=== PATIENT | female | born 1955 | race Two or more races ===

== ENCOUNTER 2017-07-23 14:15 | Emergency (ER) | payer OTHER ==
[~2017-07-23] VITALS: Ht 154.9 cm; Wt 57.2 kg
[2017-07-23 14:24] VITALS: BP 151/90
== END 2017-07-23 14:47 | disposition home or self-care (01) ==
LOC: ER 14:23
DX: J01.90 Acute sinusitis, unspecified (principal); J45.909 Unspecified asthma, uncomplicated; E11.9 Type 2 diabetes mellitus without complications; Z88.5 Allergy status to narcotic agent; Z88.6 Allergy status to analgesic agent
CPT/HCPCS: 99283; A4606; Z7610

== ENCOUNTER 2018-05-17 11:28 | Emergency (ER) | payer OTHER ==
[~2018-05-17] VITALS: Ht 154.9 cm; Wt 59.9 kg
[2018-05-17 11:55] VITALS: BP 159/69
--- NOTE | 2018-05-17 12:56 | NUR ---
CALLED [facility] [phone] SPOKE WITH YANCI TO PAGE
== END 2018-05-17 14:06 | disposition home or self-care (01) ==
LOC: ER 11:29
DX: M65.331 Trigger finger, right middle finger (principal); M79.89 Other specified soft tissue disorders; J45.909 Unspecified asthma, uncomplicated; E11.9 Type 2 diabetes mellitus without complications; Z98.49 Cataract extraction status, unspecified eye; Z88.6 Allergy status to analgesic agent; Z88.5 Allergy status to narcotic agent; Z60.2 Problems related to living alone
CPT/HCPCS: 99283; A4606; Z7610

== ENCOUNTER 2022-11-17 15:50 | Emergency (ER) | payer OTHER ==
[~2022-11-17] VITALS: Ht 154.9 cm; Wt 54.4 kg
--- NOTE | 2022-11-17 16:30 | NUR ---
BIBS C/O COUGH X 3 WEEKS. AMBULATORY, PLACED IN BED, AAOX4, BREATHING UNLABORED SATURATING AT 95%RA, COUGHING NOTED.
[2022-11-17] MEDS ORDERED: ALBUTEROL FS 2.5 MG/3 ML VIAL.NEB NEB ONE (17:00)
[2022-11-17] MEDS ORDERED: methylPREDNISolone SOD SUCC 125 MG/2ML VIAL IV ONE (17:00)
[2022-11-17] MEDS ORDERED: methylPREDNISolone SOD SUCC 125 MG/2ML VIAL ONE (17:00)
[2022-11-17] MEDS ORDERED: IPRATROPIUM NEB FS 0.5 MG/2.5 ML AMPUL.NEB NEB ONE (17:00)
--- NOTE | 2022-11-17 17:00 | NUR ---
RESP. TECH. AT BEDSIDE FOR BREATHING TREATMENT
[2022-11-17] MEDS ORDERED: ALBUTEROL FS 2.5 MG/3 ML VIAL.NEB ONE (17:03)
[2022-11-17] MEDS ORDERED: IPRATROPIUM NEB FS 0.5 MG/2.5 ML AMPUL.NEB ONE (17:03)
[2022-11-17 17:20] LABS: BASOPHILS # (AUTO) 0.1 K/uL (0.0-0.2); BASOPHILS % (AUTO) 0.8 % (0.0-2.0); HEMATOCRIT 34 % (33-45); LYMPHOCYTES # (AUTO) 1.5 K/uL (0.8-4.8); LYMPHOCYTES % (AUTO) 22.1 % (20.0-44.0); MEAN CORPUSCULAR HGB CONC 32 g/dl (31.0-36.0); MEAN CORPUSCULAR VOLUME 83 fL (82-100); MONOCYTES # (AUTO) 0.6 K/uL (0.1-1.30); MONOCYTES % (AUTO) 8.2 % (2.0-12.0); NEUTROPHILS # (AUTO) 4.7 K/uL (1.8-8.9); NEUTROPHILS % (AUTO) 67.9 % (43.0-81.0); PLATELET COUNT (AUTO) 423 K/uL (150-450); RED BLOOD CELL COUNT(AUTO) 4.13 MIL/uL (4.0-5.2); WHITE BLOOD COUNT (AUTO) 6.9 K/uL (4.3-11.0)
[2022-11-17 17:43] LABS: CALCIUM, SERUM 9.2 mg/dL (8.5-10.1); CREATININE 1.1 mg/dL (0.6-1.3); POTASSIUM 4.5 mmol/L (3.5-5.1)
--- NOTE | 2022-11-17 17:50 | NUR ---
PATIENTS GLU- 594 MADE AWARE.
[2022-11-17] MEDS ORDERED: IV NS 0.9% 1,000 ML BAG IV ONE (18:00)
[2022-11-17] MEDS ORDERED: INSULIN REGULAR, HUMAN 100 UNIT/ML 10 ML VIAL IV ONE (18:00)
[2022-11-17] MEDS ORDERED: INSULIN REGULAR, HUMAN 100 UNIT/ML 10 ML VIAL ONE (18:06)
[2022-11-17] MEDS ORDERED: AZIT250T PO (19:49)
[2022-11-17] MEDS ORDERED: METF-440 PO (19:49)
[2022-11-17] MEDS ORDERED: ALBU8.5H8 INH (19:49)
--- NOTE | 2022-11-17 20:15 | NUR ---
IV removed. Catheter intact and site benign. Pressure and 4x4 applied to site. No bleeding noted.Patient discharged to home in stable condition. Written and verbal after care instructions given. Patient verbalizes understanding of instruction.
[2022-11-17 20:26] VITALS: BP 130/75
== END 2022-11-17 20:15 | disposition home or self-care (01) ==
LOC: ER 15:50
DX: J45.909 Unspecified asthma, uncomplicated (principal); E11.65 Type 2 diabetes mellitus with hyperglycemia; Z88.8 Allergy status to other drugs, medicaments and biological substances; Z60.2 Problems related to living alone
CPT/HCPCS: 99285; 96374; 71045; 96361; 96375; 93005; 85025; 80048; 36415; 83880; 82962 ×2; 94640; J1815; J2930; J7030; G0168